=== PATIENT | male | born 1950 | race Caucasian/White ===

== ENCOUNTER 2025-04-20 11:50 | Emergency (ER) | payer MEDICARE ==
[2025-04-20] MEDS ORDERED: Sodium Chloride 0.9% 10 ML Syringe FLUSH PRN (12:06)
[2025-04-20 12:35] LABS: BASOPHILS ABSOLUTE AUTO 0.0 x10-3/uL (0.0-0.3); BASOPHILS PERCENT AUTO 0.3 % (0.3-3.8); EOSINOPHILS ABSOLUTE AUTO 0.3 x10-3/uL (0.0-0.6); EOSINOPHILS PERCENT AUTO 3.0 % (0.1-6.8); LYMPHOCYTES ABSOLUTE AUTO 1.9 x10-3/uL (0.5-4.5); LYMPHOCYTES PERCENT AUTO 17.6 % (15.8-45.3); MEAN PLATELET VOLUME 8.7 fL (6.7-11.0); MONOCYTES ABSOLUTE AUTO 1.1 x10-3/uL (0.0-1.2); MONOCYTES PERCENT AUTO 10.7 % (5.5-15.2); NEUTROPHILS ABSOLUTE AUTO 7.3 x10-3/uL (1.7-6.9); NEUTROPHILS PERCENT AUTO 68.4 % (40.3-71.8); PLATELET COUNT,PLT 230 x10(3)uL (117-477); RED BLOOD CELL COUNT 4.09 x10(6)uL (3.90-5.90); RED CELL DISTRIBUTION WIDTH 15.9 % (12.4-15.0); WHITE BLOOD CELL COUNT,WBC 10.7 x10-3/uL (3.2-10.1)
[2025-04-20 12:36] LABS: BLOOD UREA NITROGEN,BUN 48 mg/dL (7-18); CARBON DIOXIDE,CO2 29 mmol/L (21-32); CHLORIDE,CL 103 mmol/L (100-110); CREATININE 1.9 mg/dL (0.70-1.30); ESTIMATED GFR 36 mL/min (>60); GLUCOSE RANDOM 113 mg/dL (80-116); POTASSIUM,K 4.6 mmol/L (3.5-5.3); SODIUM,NA 139 mmol/L (135-145)
[2025-04-20 12:42] LABS: A/G RATIO 1.0; ALANINE AMINOTRANSFERASE,ALT 37 U/L (12-36); ASPARTATE AMNIOTRANSFERASE,AST 16 IU/L (5-25); BILIRUBIN TOTAL 0.7 mg/dL (0.1-1.3); PROTEIN TOTAL,TP 6.8 g/dL (6.0-8.0)
== END 2025-04-20 13:47 | disposition home or self-care (01) ==
LOC: FB.ED 11:50
DX: I95.9 Hypotension, unspecified (principal); E86.0 Dehydration; I25.10 Atherosclerotic heart disease of native coronary artery without angina pectoris; I11.0 Hypertensive heart disease with heart failure; I50.9 Heart failure, unspecified; Z88.0 Allergy status to penicillin; Z88.8 Allergy status to other drugs, medicaments and biological substances; Z79.899 Other long term (current) drug therapy
CPT/HCPCS: 80053; 84484; 85025; 93005; 96360; 99284-25; J7030